=== PATIENT | male | born 1980 | race African-American/Black ===

== ENCOUNTER 2017-08-01 12:06 | Emergency (ER) | payer MEDICAID, OTHER ==
[~2017-08-01] VITALS: Ht 180.3 cm; Wt 87.0 kg
[2017-08-01 13:05] VITALS: BP 118/75
== END 2017-08-01 18:42 | disposition left against medical advice (07) ==
LOC: ER 13:16
DX: S69.92XA Unspecified injury of left wrist, hand and finger(s), initial encounter (principal); Z53.21 Procedure and treatment not carried out due to patient leaving prior to being seen by health care provider; W19.XXXA Unspecified fall, initial encounter; Y93.89 Activity, other specified; Y92.89 Other specified places as the place of occurrence of the external cause; Y99.8 Other external cause status

== ENCOUNTER 2017-09-28 15:10 | Emergency (ER) | payer MEDICAID ==
[~2017-09-28] VITALS: Ht 180.3 cm; Wt 95.0 kg
[2017-09-28] MEDS ORDERED: CYCLOBENZAPRINE 10MG TABLET PO ONE (18:45)
[2017-09-28] MEDS ORDERED: IBUPROFEN 600MG TABLET PO ONE (18:45)
[2017-09-28 19:05] VITALS: BP 122/74
== END 2017-09-28 19:29 | disposition home or self-care (01) ==
LOC: ER 15:33
DX: M54.5 Low back pain (principal)
CPT/HCPCS: 99283; Z7610

== ENCOUNTER 2017-11-05 13:48 | Emergency (ER) | payer MEDICAID ==
[~2017-11-05] VITALS: Ht 182.9 cm; Wt 87.3 kg
[2017-11-05] MEDS ORDERED: BACITRACIN ZINC OINT UDPKT TOP ONE (15:00)
[2017-11-05] MEDS ORDERED: LIDOCAINE HCL 1% 20ML VIAL (Pyxis) INJ MC ONE (15:00)
[2017-11-05] MEDS ORDERED: IBUPROFEN 600MG TABLET PO ONE (17:00)
[2017-11-05] MEDS ORDERED: TETANUS, DIPHTHERIA, PERTUSSIS VAC/PF 0.5ML (>7YR OLD) IM ONE (17:00)
[2017-11-05] MEDS ORDERED: LIDOCAINE HCL/PF 1% 10 MG/ML 5ML VIAL IJ SCH (17:45)
[2017-11-05 19:43] VITALS: BP 122/73
== END 2017-11-05 19:45 | disposition home or self-care (01) ==
LOC: ER 15:29
DX: S61.012A Laceration without foreign body of left thumb without damage to nail, initial encounter (principal); S90.122A Contusion of left lesser toe(s) without damage to nail, initial encounter; W22.8XXA Striking against or struck by other objects, initial encounter; Y93.89 Activity, other specified; Y92.89 Other specified places as the place of occurrence of the external cause; Y99.8 Other external cause status
CPT/HCPCS: 12002; 73140; 73630; 90471; 90715; 99284; J3490; Z7610

== ENCOUNTER 2018-05-04 10:42 | Emergency (ER) | payer MEDICAID ==
[~2018-05-04] VITALS: Ht 180.3 cm; Wt 89.0 kg
[2018-05-04] MEDS ORDERED: HYDROCODONE/ACETAMINOPHEN 5/325MG TABLET PO ONE (14:15)
[2018-05-04 14:25] VITALS: BP 125/71
== END 2018-05-04 14:25 | disposition home or self-care (01) ==
LOC: ER 10:42
DX: S13.4XXA Sprain of ligaments of cervical spine, initial encounter (principal); F17.200 Nicotine dependence, unspecified, uncomplicated; V49.49XA Driver injured in collision with other motor vehicles in traffic accident, initial encounter; Y93.89 Activity, other specified; Y92.89 Other specified places as the place of occurrence of the external cause; Y99.8 Other external cause status
CPT/HCPCS: 99282

== ENCOUNTER 2018-10-15 10:58 | Emergency (ER) | payer MEDICAID ==
[~2018-10-15] VITALS: Ht 175.3 cm; Wt 89.0 kg
[2018-10-15 12:49] VITALS: BP 119/83
[2018-10-15] MEDS: IBUPROFEN 800MG TABLET PO ONE (12:49)
== END 2018-10-15 14:16 | disposition home or self-care (01) ==
LOC: ER 10:58
DX: R10.9 Unspecified abdominal pain (principal)
CPT/HCPCS: 71100; 99283